=== PATIENT | female | born 1945 | race Caucasian/White ===

== ENCOUNTER 2018-04-01 16:46 | Emergency (ER) | payer MEDICARE ==
[2018-04-01 17:00] VITALS: BP 109/70
--- NOTE | 2018-04-01 17:53 | UC ---
Abdominal Pain Female HPI - HPI Summary HPI Summary: PATIENT SENT BY HER PCP OFFICE FOR EVALUATION. WAS SEEN THERE TODAY COMPLAINING OF 3 DAYS OF OVERALL MALAISE, ABDOMINAL PAIN AND NAUSEA. STATES SHE HAS NOT HAD A BOWEL MOVEMENT IN 3 DAYS WHICH IS NOT NORMAL FOR HER. SHE DOES HOWEVER ENDORSE PASSING GAS TODAY. APPETITE IS DOWN. SHE ADMITS SHE HAS NOT HAD MUCH TO EAT OR DRINK IN THE PAST FEW DAYS. NO FEVER. SHE IS TACHYCARDIC. ACCORDING TO PROGRESS NOTE FROM PCP OFFICE THEY WERE CONCERNED FOR SEPSIS SECONDARY TO UTI VERSUS ABDOMINAL INFECTION/OBSTRUCTION. - History of Current Complaint Chief Complaint: UCAbdominalPain Stated Complaint: STOMACH PAIN Time Seen by Provider: 04/01/18 17:24 Hx Obtained From: Patient Onset/Duration: Gradual Onset, Lasting Days, Still Present Timing: Constant Severity Initially: Moderate Severity Currently: Moderate Pain Intensity: 0 Pain Scale Used: 0-10 Numeric Location: Diffuse Radiates: No Character: Sharp Aggravating Factor(s): Nothing Alleviating Factor(s): Nothing Associated Signs and Symptoms: Positive: Constipation, Decreased Appetite, Nausea. Negative: Fever, Back Pain, Blood in Stool, Vomiting Allergies/Adverse Reactions: Allergies Allergy/AdvReac Type Severity Reaction Status Date / Time No Known Allergies Allergy Verified 04/01/18 16:59 Home Medications: Home Medications Atorvastatin* [Lipitor 10 MG*] 1 tab PO DAILY 04/01/18 [History Confirmed ] Calcium Carbonate/Vitamin D3 [Calcium 600-Vit D3 400 Tablet] 1 tab PO DAILY [History Confirmed 04/01/18] Cholecalciferol TAB* [Vitamin D TAB*] 2,000 units PO DAILY 04/01/18 [History Confirmed 04/01/18] Levothyroxine TAB* [Synthroid 75 MCG TAB*] 1 tab PO DAILY 04/01/18 [History Confirmed 04/01/18] Losartan/Hydrochlorothiazide [Hyzaar 50/12.5 mg] 1 tab PO DAILY 04/01/18 [ History Confirmed 04/01/18] Metoprolol Succinate XL TAB* [Toprol XL TAB*] 1 tab PO DAILY 04/01/18 [History Confirmed 04/01/18] Warfarin TAB(*) [Coumadin TAB(*)] 1 tab PO DAILY 04/01/18 [History Confirmed ] PMH/Surg Hx/FS Hx/Imm Hx Endocrine History: Hypothyroidism Cardiovascular History: Hypertension, Atrial Fibrillation - Surgical History Surgical History: None - Family History Known Family History: Positive: Hypertension - Social History Alcohol Use: None Substance Use Type: None Smoking Status (MU): Never Smoked Tobacco Review of Systems Constitutional: Fatigue Respiratory: Negative Cardiovascular: Negative Gastrointestinal: Abdominal Pain, Nausea, Other - constipated Genitourinary: Negative All Other Systems Reviewed And Are Negative: Yes Physical Exam Triage Information Reviewed: Yes Appearance: Well-Appearing, No Pain Distress, Well-Nourished Vital Signs: Initial Vital Signs Temp 98.8 F 04/01/18 16:55 Pulse 112 04/01/18 16:55 Resp 12 04/01/18 16:55 BP 109/70 04/01/18 16:55 Pulse Ox 98 04/01/18 16:55 Laboratory Tests 04/01/18 18:02 POC Urine Color Brown POC Urine Clarity Slightly cloudy POC Urine pH 5.5 POC Ur Specif [place] 1.025 POC Urine Protein 2+ A POC Ur Glucose (UA) Negative POC Urine Ketones Negative POC Urine Blood 3+ A POC Urine Nitrite Negative POC Urine Bilirubin 1+ A POC Urine Urobilinogen 1.0 POC U Leukocyte Esteras Negative Vital Signs Reviewed: Yes Eyes: Positive: Conjunctiva Clear ENT: Positive: Hearing grossly normal, Other - MUCUS MEMBRANES DRY Neck: Positive: Supple Respiratory Exam: Normal Cardiovascular: Positive: Tachycardia - IRREGULAR Abdomen Description: Positive: Soft, Distended, Other: - MILD RLQ TTP. NO REBOUND OR RIGIDITY. NEG PSOAS. Negative: CVA Tenderness (R), CVA Tenderness (L ), Guarding Bowel Sounds: Positive: Present - NORMAL Musculoskeletal: Positive: No Edema Neurological: Positive: Alert Psychological: Positive: Age Appropriate Behavior Skin: Negative: rashes Diagnostics - EKG Cardiac Rate: NL - 90BPM Cardiac Rhythm: AFib: Old Ectopy: None ST Segment: Normal Abd Pain Female Course/Dx - Course Course Of Treatment: TO [facility] BY AMBULANCE. PT WITH SEVERAL DAYS OF ABDOMINAL PAIN. ON EXAM SHE HAS DISTINCT BOWEL SOUNDS AND REPORTS SHE IS PASSING GAS BUT NO BOWEL MOVEMENT IN 3 DAYS. HAS NAUSEA AND IS NOT EATING OR DRINKING MUCH. MUCUS MEMBRANES DRY. UA SHOWS 3+ BLOOD. PT TACHYCARDIC WITH AFIB. BP LOW/NORMAL. - Differential Dx/Diagnosis Provider Diagnoses: 1. ABDOMINAL PAIN. 2. DEHYDRATION. 3. AFIB WITH RVR - Physician Notification/Consults Discussed Care of Patient With: Lucille Silverio - TO [facility] BY AMBULANCE Time Discussed With Above Provider: 18:30 Instructed by Provider To: MD Will See In ED Discharge - Sign-Out/Discharge Documenting (check all that apply): Patient Departure All imaging exams completed and their final reports reviewed: No Studies - Discharge Plan Condition: Stable Disposition: TRANS HIGHER LVL OF CARE FAC Referrals: Lynda Betts MD [Primary Care Provider] - - Billing Disposition and Condition Condition: STABLE Disposition: Trans Higher Lvl of Care Fac
[2018-04-01] MEDS ORDERED: NS 0.9% 1000 ML* 1,000 ML IV SCH (18:30)
== END 2018-04-01 18:50 | disposition short-term general hospital (02) ==
LOC: UCEAST 16:46
DX: R10.9 Unspecified abdominal pain (principal); E86.0 Dehydration; I48.91 Unspecified atrial fibrillation; I10 Essential (primary) hypertension; Z79.01 Long term (current) use of anticoagulants; E03.9 Hypothyroidism, unspecified; Z79.899 Other long term (current) drug therapy; R53.81 Other malaise; R11.0 Nausea
CPT/HCPCS: 81003; 93005; 96360; 99213; G0463

== ENCOUNTER 2018-04-01 19:06 | Inpatient (IN) | payer MEDICARE ==
[2018-04-01] MEDS ORDERED: NS 0.9% 1000 ML* 1,000 ML IV ONE ×2 (19:26→20:51)
--- NOTE | 2018-04-01 19:42 | ED ---
Abdominal Pain/Female - HPI Summary HPI Summary: A 72 y/o female GEORGE presents to ED c/o RLQ abdominal pain. Currently, the patient is still experiencing abdominal pain reaching 5/10 in severity. In the ED room, the patient has a pulse of 86 BPM, O2 saturation of 93% and blood pressure of 129/75. As per triage, "Pt sent from with co's of constipation. Pt also co some diffuse abd cramping. Denies fever or nv". According to the patient, she has been experiencing RLQ abdominal pain since Friday (03/29/2018, 3 days ago). She noted that she also has vomiting, hematuria and constipation, but denies any rash or diarrhea. No PMHx of appendectomy and kidney stones. SHx of no smoking, a couple beers occasionally. Current medications include Warfarin for a irregular heart beat. - History of Current Complaint Chief Complaint: EDAbdPain Stated Complaint: ABD PAIN Time Seen by Provider: 04/01/18 19:15 Hx Obtained From: Patient Onset/Duration: Sudden Onset, Lasting Days, Still Present Timing: Constant Severity Initially: Moderate Severity Currently: Moderate Pain Intensity: 5 Pain Scale Used: 0-10 Numeric Location: Discrete At: RLQ Radiates: No Aggravating Factor(s): Nothing Alleviating Factor(s): Nothing Associated Signs and Symptoms: Positive: Urinary Symptoms - Hematuria, Vomiting. 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 Infectious Disease History: No Infectious Disease History: Denies: Traveled Outside the [place] in Last 30 Days - Family History Known Family History: Positive: Hypertension - Social History Alcohol Use: None Substance Use Type: Reports: None Smoking Status (MU): Never Smoked Tobacco Review of Systems Negative: Fever Positive: Abdominal Pain, Vomiting, Other - POSITIVE: Constipation. Negative: Diarrhea Positive: hematuria Negative: Rash All Other Systems Reviewed And Are Negative: Yes Physical Exam - Summary Physical Exam Summary: Appearance: Well appearing, no pain distress Skin: warm, dry, reflects adequate perfusion Head/face: normal Eyes: EOMI, TRU ENT: normal Neck: supple, non-tender Respiratory: CTA, breath sounds present Cardiovascular: RRR, pulses symmetrical Abdomen: soft, RLQ tenderness Bowel: present Musculoskeletal: normal, strength/ROM intact Neuro: normal, sensory motor intact, A&Ox3 Triage Information Reviewed: Yes Vital Signs On Initial Exam: Initial Vitals Temp Pulse Resp BP Pulse Ox 97.7 F 91 15 126/78 95 04/01/18 19:36 04/01/18 19:36 04/01/18 19:36 04/01/18 19:36 04/01/18 19:36 Vital Signs Reviewed: Yes Diagnostics - Vital Signs Vital Signs Temp Pulse Resp BP Pulse Ox 04/01/18 19:36 97.7 F 91 15 126/78 95 - Laboratory Result Diagrams: 04/01/18 20:03 04/01/18 20:03 Lab Statement: Any lab studies that have been ordered have been reviewed, and results considered in the medical decision making process. - EKG 2144 Cardiac Rate: NL - 81 BPM EKG Rhythm: Atrial Fibrillation Abdominal Pain Fem Course/Dx - Course Course Of Treatment: A 72 y/o female GEORGE presents to ED c/o RLQ abdominal pain. Currently, the patient is still experiencing abdominal pain reaching 5/10 in severity. In the ED room, the patient has a pulse of 86 BPM, O2 saturation of 93% and blood pressure of 129/75. An EKG revealed a NSR of 81 BPM and atrial fibrillation. In the ED course, the patient recieved Visipaque, Vitamin K and IV fluids. Patient is signed out to Dr. Carlos Ayala via Dr. Shashi Kolb,, awaiting CT A/P, medical clearance and disposition during shift change at 2200 on March. Patient will be signed out with a diagnosis of abdominal pain and hematuria. - Diagnoses Differential Diagnosis: Positive: Diverticulitis, Renal Colic, Urinary Tract Infection Provider Diagnoses: Abdominal pain, Hematuria, Coagulopathy - Critical Care Time Critical Care Time: 30-74 min Discharge - Sign-Out/Discharge Documenting (check all that apply): Sign-Out Patient Signing out patient TO: Carlos Ayala Receiving patient FROM: Shashi Kolb - Discharge Plan Condition: Stable Referrals: Lynda Betts MD [Primary Care Provider] - - Billing Disposition and Condition Condition: STABLE - Attestation Statements Document Initiated by Scribe: Yes Documenting Scribe: Ramiro Elaine Provider For Whom Scribe is Documenting (Include Credential): Shashi Kolb Scribe Attestation: Ramiro Nelson, scribed for Shashi Kolb on 04/01/18 at 2203. Scribe Documentation Reviewed: Yes Provider Attestation: The documentation as recorded by the scribe, Ramiro Elaine accurately reflects the service I personally performed and the decisions made by , Shashi Kolb
[2018-04-01 20:23] LABS: ABS Basophils 0 10^3/ul (0-0.2); ABS Eosinophils 0 10^3/ul (0-0.6); ABS Lymphocytes 1.2 10^3/ul (1.0-4.8); ABS Monocytes 1.3 10^3/ul (0-0.8); ABS Nucleated RBC 0 10^3/ul; Eosinophil % 0.1 % (0-6); Hematocrit 40 % (35-47); Hemoglobin 13.3 g/dl (12.0-16.0); Lymphocyte % 9.7 % (25-47); Mean Corpuscular HGB Conc 33 g/dl (31-36); Mean Corpuscular Hemoglobin 29 pg (27-31); Mean Corpuscular Volume 85 fL (80-97); Mean Platelet Volume 8.2 um3 (7.4-10.4); Nucleated Red Blood Cells % 0; Platelet Count 333 10^3/ul (150-450); Red Blood Count 4.65 10^6/ul (4.00-5.40); Red Cell Distribution Width 13 % (10.5-15); White Blood Count 12.6 10^3/ul (3.5-10.8)
[2018-04-01 20:36] LABS: Urine Appearance Cloudy; Urine Blood 3+ (Negative); Urine Color Amber; Urine Ketones Negative (Negative); Urine Protein 2+(100 mg/dL) (Negative); Urine Red Blood Cell 3+(>10/hpf) (Absent); Urine Urobilinogen Negative (Negative); Urine White Blood Cell 3+(>20/hpf) (Absent)
[2018-04-01 20:48] LABS: EGFR Non-African American 58.5 (>60)
[2018-04-01 21:04] LABS: INR 23.23 (0.77-1.02)
[2018-04-01] MEDS ORDERED: Phytonadione Oral Solution* 5 MG/25 ML UDC PO ONE (21:13)
[2018-04-01] MEDS ORDERED: Iodixanol* (CONTRAST) 320 MG/ML 100 ML SDV IV ONE (21:39)
[2018-04-01] MEDS ORDERED: Phytonadione IV (Adult)* 10 MG in NS 0.9% 50 ML* 50 ML IV ONE (22:27)
--- NOTE | 2018-04-01 23:22 | RAD ---
EXAM: CT Abdomen and Pelvis With Intravenous Contrast CLINICAL HISTORY: 72 years old, female; Pain; Abdominal pain; Generalized; Additional info: Diverticulitis TECHNIQUE: Axial computed tomography images of the abdomen and pelvis with intravenous contrast. All CT scans at this facility use at least one of these dose optimization techniques: automated exposure control; mA and/or kV adjustment per patient size (includes targeted exams where dose is matched to clinical indication); or iterative reconstruction. Coronal and sagittal reformatted images were created and reviewed. CONTRAST: 100 mL of VISI administered intravenously. COMPARISON: No relevant prior studies available. FINDINGS: Lung bases: Linear opacities located in the lung bases which may represent areas of atelectasis and/or scarring. Small hiatal hernia. Liver appears atrophic. No focal hepatic lesion. ABDOMEN: Liver: Unremarkable. No mass. Gallbladder and bile ducts: Gallbladder is partially collapsed. Mild thickening of the gallbladder wall. No calcified gallstones. Small amount of fluid in the gallbladder fossa. No ductal dilation. Pancreas: Pancreas is normal in appearance. No dilatation of the pancreatic duct. Spleen: The spleen is of normal size and appearance. Adrenals: The adrenal glands are normal in appearance. Kidneys and ureters: The kidneys are of normal size and appearance. No hydronephrosis or nephrolithiasis. Extrarenal pelvis on the right side. No hydroureter. Stomach and bowel: Mild dilatation of the proximal small bowel. A transition zone located in the lower abdomen best seen on axial image series 2 image 68 as well as in coronal image series 601 image [id number]. The bowel distal to this transition zone shows abnormal wall thickening with mesenteric inflammation. No bowel wall pneumatosis. Contrast is seen in the mucosa. This appears to be a short segment measuring approximately 12 cm in length. The small bowel distal to this segment has a normal caliber . The appearance of the terminal ileum is normal. Occasional colonic diverticula. No evidence of acute diverticulitis. PELVIS: Appendix: The appearance of the appendix is normal. Bladder: The bladder is filled with urine. No bladder wall thickening. Note calcified bladder stone. Reproductive: Calcification within the uterus most likely representing a leiomyoma. No adnexal masses. ABDOMEN and PELVIS: Intraperitoneal space: Small amount of abdominal ascites. No free air. Bones/joints: No acute fracture. No dislocation. Soft tissues: Unremarkable. Vasculature: Atheromatous changes along the abdominal aorta and iliac arteries. No aneurysmal dilatation. Lymph nodes: Unremarkable. No enlarged lymph nodes. IMPRESSION: Abnormal segment of small bowel which shows abnormal bowel wall thickening. Contrast is seen within the mucosa. Associated mesenteric inflammation. This causes a partial small bowel obstruction. Bowel contrast is seen distal to this segment in which the distal small bowel is normal in appearance. No evidence of a perforation. No associated abscess or mass. Moderate amount of free fluid in the abdomen. This may represent a focal enteritis. This may be secondary to an infectious or inflammatory process. There is contrast located in the mesenteric arcade as well as in the mucosa of the involved small bowel. I do not see evidence of thrombus within the superior mesenteric artery. Contrast is seen in the superior mesenteric vein. This I believe an ischemic process is less likely unless the patient had an embolic phenomenon with interval lysis of the clot.
[2018-04-02 00:10] LABS: Hematocrit 32 % (35-47); Hemoglobin 11.1 g/dl (12.0-16.0)
--- NOTE | 2018-04-02 00:29 | ED ---
Progress - Progress Note Progress Note: Patient was received as a sign out from Dr. Kolb to Dr. Ayala at [address] abd/pel: Abnormal segment of small bowel which shows abnormal bowel wall thickening. Contrast is seen within the mucosa. Associated mesenteric inflammation. This causes a partial small bowel obstruction. Bowel contrast is seen distal to this segment in which the distal small bowel is normal in appearance. No evidence of a perforation. No associated abscess or mass. Moderate amount of free fluid in the abdomen. This may represent a focal enteritis. This may be secondary to an infectious or inflammatory process. There is contrast located in the mesenteric arcade as well as in the mucosa of the involved small bowel. I do not see evidence of thrombus within the superior mesenteric artery. Contrast is seen in the superior mesenteric vein. This I believe an ischemic process is less likely unless the patient had an embolic phenomenon with interval lysis of the clot. re-eval at 22:55: discussed high INR of patient consult with Dr. Candelaria at 2338, she recommends talking to surgery. As there is no coverage for GI, patient will have to be transferred discussed transfer to higher care facility with patient at 2347. Patient is adamant that she does not want to be transferred. 0120: discussed care of patient with Dr. Candelaria in person. Dr. Candelaria does not wan to admit patient, states that Dr. Davila needs to see patient for decision and that she would need surgery opinion for admission of patient 0124: Dr. Davila was called, and is tied up in the OR. He will see the patient when able. 0126: options of patient discussed, she is adamant that she does not want to be transferred. Patient has evidence of GI, bleeding without any blessing blood per rectum. Her INR was 23 on arrival and was given 2 units of FFP, IV vitamin K by me. She had vomited the oral vitamin K given by the physician previous to me. There is a segment of proximal small bowel that appears inflamed. It is possible that this could be a bleeding segment. Surgeon suggest treating enteritis with IV antibiotics. On repeat blood count initially the hemoglobin had dropped 2 g. On the subsequent hemoglobin had raised to 11.8. Her INR felt to 2.1. She is admitted for further observation to the ICU. Re-Evaluation - Re-Evaluation First Eval Re-Evaluation Time: 22:55 Comment: discussed high INR of patient Second Eval Re-Evaluation Time: 23:47 Comment: Patient is adamant that she does not want to be transferred and would leave hospital if that is her only option Third Eval Re-Evaluation Time: 01:26 Comment: Despite discussion of patient's options, she is adamant that she does not want to be transferred Course/Dx - Course Course Of Treatment: A 72 y/o female GEORGE presents to ED c/o RLQ abdominal pain. Currently, the patient is still experiencing abdominal pain reaching 5/10 in severity. In the ED room, the patient has a pulse of 86 BPM, O2 saturation of 93% and blood pressure of 129/75. An EKG revealed a NSR of 81 BPM and atrial fibrillation. In the ED course, the patient recieved Visipaque, Vitamin K and IV fluids. Patient is signed out to Dr. Carlos Ayala via Dr. Shashi Kolb,, awaiting CT A/P, medical clearance and disposition during shift change at 2200 on March. Patient will be signed out with a diagnosis of abdominal pain and hematuria. - Diagnoses Provider Diagnoses: Hematuria, Acute ischemic enteritis, Supratherapeutic INR, Right sided abdominal pain, Adverse effect of anticoagulant - Provider Notifications Discussed Care Of Patient With: Jolie Candelaria Time Discussed With Above Provider: 23:38 Instructed by Provider To: Other - Dr. Candelaria was consulted on patient's case at 2338, states that Dr. Ayala should talk to surgery. As there is no GI coverage , patient will likely have to be transferred. At 0120, discussed care of patient with Dr. Candelaria in person. Dr. Candelaria does not wan to admit patient, states that Dr. Davila needs to see patient for decision and that she would need surgery opinion for admission of patient. 0124, Dr. Davila does not want to come to see patient. - Critical Care Time Critical Care Time: 75-104 min - Critical care time is exclusive of separately billable procedures. Critical care time includes complex medical decision making, transfusion of blood products, multiple re-evaluations, multiple discussions with patient's and consultants. Discharge - Sign-Out/Discharge Documenting (check all that apply): Patient Departure - Discharge Plan Condition: Guarded Disposition: ADMITTED TO [facility] - Billing Disposition and Condition Condition: GUARDED Disposition: Admitted to [facility] - Attestation Statements Document Initiated by Yenny: Yes Documenting Scribe: Enoch Fraire Provider For Whom Yenny is Documenting (Include Credential): Carlos Ayala MD Scribe Attestation: Enoch Nelson, scribed for Carlos Ayala MD on 04/02/18 at 0711. Scribe Documentation Reviewed: Yes Provider Attestation: The documentation as recorded by the Enoch medellin accurately reflects the service I personally performed and the decisions made by me, Carlso Ayala MD
[2018-04-02] MEDS ORDERED: Piperacillin/Tazobac ADVAN(*) 3.375 GM in NS 0.9% 100 ML* 100 ML IVPB ONE (01:26)
--- NOTE | 2018-04-02 02:31 | CONS ---
CC: Lynda Tian MD * CONSULTATION REPORT: DATE OF CONSULT: 04/02/18 TIME OF EVALUATION: 0000. PRIMARY CARE PHYSICIAN: Lynda Tian MD REQUESTING PHYSICIAN FOR CONSULTATION: Carlos Ayala MD REASON FOR CONSULTATION: Evaluation for admission. CHIEF COMPLAINT: Abdominal pain, nausea, and vomiting. HISTORY OF PRESENT ILLNESS: This is a 72-year-old female with the past medical history of atrial fibrillation on anticoagulation, who went to her PCP this morning to have her INR checked and she was also complaining of 3 days of nausea , vomiting, and abdominal pain. Her primary care doctor sent her to urgent care , urgent care promptly sent her to the emergency room. She states she has had the soreness mostly in her right lower quadrant periumbilical region and has had nausea and vomiting for the past 3 days as well. She states she is often constipated. Her last bowel movement she believed was either on the or the . She denies having any flatus. No urinary symptoms. She has noticed some hematuria. She has had decreased appetite for the past 3 days. No fevers. She states she has not had any changes in her medications. She has been taking her Coumadin 2.5 tablets daily. No dietary changes. No recent antibiotic use. She denies any melena or bright red blood per rectum. No chest pain or shortness of breath. Otherwise, review of systems is negative. In the emergency room, the patient had labs and imaging. She was found to have an INR of 23 and a partial small bowel obstruction on CAT scan and she was referred to the hospitalist service for further evaluation. PAST MEDICAL HISTORY: 1. Hypertension. 2. Atrial fibrillation, on anticoagulation. 3. Hypothyroidism. 4. Hyperlipidemia. PAST SURGICAL HISTORY: History of skin cancer on her forehead status post excision. No report of abdominal surgeries. MEDICATIONS: 1. Lipitor 10 mg p.o. daily. 2. Synthroid 50 mcg daily. 3. Losartan/hydrochlorothiazide 50/12.5 mg daily. 4. Metoprolol XL 25 mg daily. 5. Warfarin 3 mg p.o. daily. ALLERGIES: No known drug allergies. FAMILY HISTORY: Mother of unknown case. Father from an [place] in the 70s. SOCIAL HISTORY: The patient lives alone. She is . She has 3 children. Her daughter, Haydee is her healthcare proxy. She is a remote smoker. She drinks about 6 beers per week. CODE STATUS: Full code. REVIEW OF SYSTEMS: A 14-point review of systems as mentioned in the HPI, otherwise negative. PHYSICAL EXAM: Vitals: Temp 97.7, pulse rate 90, respiratory rate 27, oxygen saturation 95% on room air, blood pressure 137/81. General: Some mild distress from discomfort. HEENT: Head normocephalic. Pupils are equal, reactive, and light. Oropharynx: Mucous membranes are dry. Neck: Supple. No lymphadenopathy. Cardiac: Irregularly irregular rate and rhythm. Soft systolic murmur heard throughout. Respiratory: Diminished breath sounds. No wheezes, rhonchi, or rales. Abdomen: Unable to appreciate any bowel sounds. Mild distention. Soft. Tenderness with guarding in the right lower mid quadrant. Extremities: No clubbing, cyanosis, or edema. +1 DPs. Neurologic: Alert and oriented x3. No gross focal neurologic deficits. LABORATORY DATA: White count 12.6, hemoglobin 15.3, hematocrit 40, platelets 333,000. INR is 23, PTT is 122.9. Sodium 130, potassium 3.7, chloride 95, bicarb 27, BUN 23, creatinine 0.94, glucose 117, lactic acid of 2.1, total bili 1.5. Troponin 0.04. Urine shows +3 blood. RADIOGRAPHIC DATA: Abdominal and pelvis CT shows abnormal segment of small bowel, which shows abnormal bowel wall thickening. Contrast seen within the mucosa, associated mesenteric inflammation. This caused a partial small bowel obstruction. Bowel contrast is seen distal to the segment, in which the distal small bowel has normal appearance. No evidence of perforation. No suspicion of abscess or mass. Moderate amount of free fluid in the abdomen. This may represent a focal enteritis. This may be secondary to an infectious or inflammatory process. There is contrast located in the mesenteric arcade as well as the mucosa of the involved small bowel. I do not see evidence of thrombus within the superior mesenteric artery. Contrast is seen in the superior mesenteric vein. Thus, I believe an ischemic process is less likely unless the patient had an embolic phenomenon with interval lysis of the clot. EKG shows atrial fibrillation with a rate of 80. ASSESSMENT: This is a 72-year-old female with past medical history of atrial fibrillation on anticoagulation who presented from urgent care with nausea, vomiting, and abdominal pain, found to have a small bowel obstruction as well as an INR of 23. I repeated her H and H for a concern of occult bleed and her H and H went down to . Her Hemoccult also came back positive. My concern is there is no GI coverage this evening or tomorrow and that she may develop a blessing GI bleed with her INR of 23. She is on her second bag of FFP and has gotten vitamin K; however, due to no availability of GI backup, I recommended transfer to a facility that has GI services 24/02. I relayed my recommendation to Dr. Ayala who is going to transfer her. TIME SPENT: Greater than 60 minutes was spent doing the consultation, more than half time spent in direct patient contact. [id number]/[facility] #: [id number] ADDENDUM As mentioned in progress note - this is now H&P as INR has nearly normalized and H/H has stablized. Patient aware of risks of no GI coverage. Will admit and continue supportive care, including surgery consultation. JENN
[2018-04-02 03:36] LABS: Hematocrit 34 % (35-47); Hemoglobin 11.8 g/dl (12.0-16.0)
[2018-04-02 03:43] LABS: INR 2.11 (0.77-1.02)
[2018-04-02] MEDS ORDERED: Al Hydrox/Mg Hydrox/Simet LIQ* 30 ML UDC PO PRN (03:52)
[2018-04-02] MEDS ORDERED: Ondansetron INJ* 2 MG/ML VIAL IV PRN (03:52)
[2018-04-02] MEDS ORDERED: Metoprolol Tartrate IV* 1 MG/ML 5 ML VIAL IV PRN (03:55)
--- NOTE | 2018-04-02 04:00 | PN ---
Progress Note - Progress Note Date of Service: 04/02/18 Note: Patient has capacity. Refused to leave the ER and refused to be transferred. Discussed the risks of no GI coverage and concern for a catastrophic event for a GI bleed, with an INR of 23, a rapid drop in H/H and a positive hemoccult. Attempted to call the daughter but there was no answer. Called her PCP extrusion bender , an [employer] Batsheva Buck, called the patient to encourage her to be transferred to a hospital that had GI coverage. Patient continued to decline, stating it would be too far away for her family to visit. Repeat H/H showed stable from prior H/H and repeat INR was 2. Patient had received two bags of FFP and Vitamin K. Question if there was a lab error initially with an INR of 23. Dr. Davila evaluated the patient and agreed to be available as a program evaluation consultant. Plan: admit to ICU, PPI drip, hold further blood products, continue zoysn, IVFs. NPO for now. Lopressor IV prn. IF she remains NPO for several days, will need to provide synthroid IV. Follow up with surgery and repeat labs in the AM. Again patient understands the risk for GI bleed and possible with no GI coverage at [facility] and is willing to be admitted regardless. Patient has capacity.
[2018-04-02] MEDS ORDERED: Pantoprazole IV* 40 MG ONE (04:03)
[2018-04-02] MEDS ORDERED: Zosyn per Pharmacy* NOTE FOLLOW UP PRN (04:22)
[2018-04-02] MEDS: Pantoprazole IV* 80 MG in NS 0.9% 250 ML* 250 ML IVPB SCH ×2 (04:50→16:57)
--- NOTE | 2018-04-02 05:24 | CONS ---
CC: Dr. Lynda Betts; [facility] * SURGICAL CONSULTATION REPORT: DATE OF CONSULT: 04/02/18 LOCATION: Emergency room. HISTORY OF PRESENT ILLNESS: I was contacted by the emergency room to evaluate Ms. Sue, a 72-year-old female, who presented to the emergency room from [facility] with complaints of elevated INR and crampy abdominal pain. The patient describes presenting to her primary care doctor today for a routine INR check. When this was elevated, the patient was sent for [facility] for evaluation. The patient was evaluated by her primary care doctor during the time of the elevated INR and was noted to have abdominal pain. The patient describes having an onset of pain on Friday. This was the patient's complaint while here in the emergency room and the patient was sent for CT scan of the abdomen and pelvis. These images were reviewed as well as report and were consistent with a possible partial small bowel obstruction and edematous portion of small bowel and Surgery was consulted. The patient had been in her routine good health up until about Friday when she describes having abdominal pain accompanied with nausea and vomiting. She vomited 2 episodes and did stop. She had no additional vomiting, but describes having pain persistently in the right lower quadrant describing it as tense. She had decreased appetite during all this time and had her last meal on Friday night. The patient has had constipation, but this is not unusual. She denies obstipation. Workup in the ER also showed an INR of 23.2 and elevated PTT. This promptly normalized to 2.11 and may have been more lab error; this is unclear. The patient did receive vitamin K as well as FFP, having 2 FFP transfused. PAST MEDICAL HISTORY: Atrial fibrillation, hypertension, hypothyroidism, and hypercholesterolemia. PAST SURGICAL HISTORY: Skin cancer removed from her forehead. No abdominal surgeries. MEDICATIONS: Medication list reviewed. ALLERGIES: No known drug allergies. SOCIAL HISTORY: She has 3 children, who do check up on her. She quit smoking many years ago. She drinks almost daily. REVIEW OF SYSTEMS: Nausea and vomiting as described. Abdominal pain as described. Decreased appetite. No significant weight loss or weight gain. No dysuria, but hematuria. PHYSICAL EXAM: The patient's temperature 97.7, heart rate 80s to 100s, blood pressure normal with most recent 142/78, respirations 22. Alert and oriented x3. Neck: No lymphadenopathy. Abdomen is soft, nondistended, tender at the right lower quadrant with positive guarding, but no rebound. Hypoactive bowel sounds. Rectal exam not performed. Extremities: Within normal limits. DIAGNOSTIC STUDIES/LAB DATA: Labs reviewed show white count of 12.6 with no left shift, H and H 13/40, which did drop to 11/34 with possible hydration. Chemistry panel reviewed, shows a mildly elevated lactate of 2.1, reference range is less than 2. Normal troponin. Elevated bilirubin of 1.5. Urinalysis reviewed as well. CAT scan again reviewed, which showed segment of small bowel approximately 12 cm in length that shows thickening. There is contrast distal to the thickened bowel and I do not believe the patient is suffering with obstruction. This may represent enteritis. IMPRESSION AND PLAN: Abdominal complaints, elevated INR that seems to have normalized on followup labs where INR shows that it is 2.1. She did have a mild drop in her hemoglobin. My concern is that the patient may be suffering with a short-segment small bowel with potential ischemic changes, but more likely an enteritis. My recommendation is IV hydration. N.p.o. status for now. Bowel rest. Serial abdominal exams and we will follow up in the morning. Case was discussed with hospitalist service and we will follow along closely. [id number]/[facility] #: [id number] JENN
[2018-04-02 06:19] LABS: ABS Basophils 0 10^3/ul (0-0.2); ABS Eosinophils 0 10^3/ul (0-0.6); ABS Lymphocytes 0.8 10^3/ul (1.0-4.8); ABS Monocytes 0.8 10^3/ul (0-0.8); ABS Neutrophils 6.7 10^3/ul (1.5-7.7); ABS Nucleated RBC 0 10^3/ul; Eosinophil % 0.5 % (0-6); Hematocrit 34 % (35-47); Hemoglobin 11.7 g/dl (12.0-16.0); Lymphocyte % 9.3 % (25-47); Mean Corpuscular HGB Conc 35 g/dl (31-36); Mean Corpuscular Hemoglobin 29 pg (27-31); Mean Corpuscular Volume 84 fL (80-97); Nucleated Red Blood Cells % 0; Platelet Count 260 10^3/ul (150-450); Red Cell Distribution Width 13 % (10.5-15); White Blood Count 8.4 10^3/ul (3.5-10.8)
[2018-04-02] MEDS: Piperacillin/Tazobac ADVAN(*) 3.375 GM in NS 0.9% 100 ML* 100 ML IVPB SCH ×3 (06:30→22:32)
[2018-04-02 06:41] LABS: INR 1.74 (0.77-1.02)
[2018-04-02 06:43] LABS: EGFR Non-African American 77.1 (>60)
--- NOTE | 2018-04-02 08:02 | RAD ---
INDICATION: Constipation COMPARISON: CT abdomen pelvis dated April 01, 2016 TECHNIQUE: 2 views the abdomen were obtained. FINDINGS: Diagnostic utility is limited due to poor penetration of a portable chest x-ray through the patient's large body habitus. In the left upper quadrant there are loops of air-filled small bowel measuring 3.5 cm in diameter. There is no definite free intraperitoneal air. IMPRESSION:DILATED LOOPS OF AIR-FILLED SMALL BOWEL IN THE LEFT UPPER QUADRANT MEASURE 3.5 CM IN DIAMETER WHICH CAN BE SEEN IN THE SETTING OF PARTIAL BOWEL OBSTRUCTION OR ILEUS.
--- NOTE | 2018-04-02 11:34 | PN ---
Progress Note - Progress Note Date of Service: 04/02/18 SOAP: Subjective: Pt seen and examined. She is feeling better. Minimal pain R side no flatus no N/V Objective: Temp Pulse Resp BP Pulse Ox 97.6 F 95 23 124/74 93 04/02/18 08:00 04/02/18 06:00 04/02/18 06:00 04/02/18 06:00 04/02/18 06:00 Intake & Output 04/01/18 04/02/18 04/02/18 22:59 06:59 14:59 Intake Total 1000 1193.4 Output Total 950 Balance 1000 243.4 Weight 182 lb 185 lb 3.013 oz abdo: ND, tender on deep palpation at R; no rebound, no guarding Laboratory Last Values WBC 8.4 10^3/ul (3.5-10.8) 04/02/18 06:12 RBC 4.00 10^6/ul (4.00-5.40) 04/02/18 06:12 Hgb 11.7 g/dl (12.0-16.0) L 04/02/18 06:12 Hct 34 % (35-47) L 04/02/18 06:12 MCV 84 fL (80-97) 04/02/18 06:12 MCH 29 pg (27-31) 04/02/18 06:12 MCHC 35 g/dl (31-36) 04/02/18 06:12 RDW 13 % (10.5-15) 04/02/18 06:12 Plt Count 260 10^3/ul (150-450) 04/02/18 06:12 MPV 8.0 um3 (7.4-10.4) 04/02/18 06:12 Neut % (Auto) 79.8 % (38-83) 04/02/18 06:12 Lymph % (Auto) 9.3 % (25-47) L 04/02/18 06:12 Jack % (Auto) 9.9 % (0-7) H 04/02/18 06:12 Eos % (Auto) 0.5 % (0-6) 04/02/18 06:12 Baso % (Auto) 0.5 % (0-2) 04/02/18 06:12 Absolute Neuts (auto) 6.7 10^3/ul (1.5-7.7) 04/02/18 06:12 Absolute Lymphs (auto) 0.8 10^3/ul (1.0-4.8) L 04/02/18 06:12 Absolute Monos (auto) 0.8 10^3/ul (0-0.8) 04/02/18 06:12 Absolute Eos (auto) 0 10^3/ul (0-0.6) 04/02/18 06:12 Absolute Basos (auto) 0 10^3/ul (0-0.2) 04/02/18 06:12 Absolute Nucleated RBC 0 10^3/ul 04/02/18 06:12 Nucleated RBC % 0 04/02/18 06:12 INR (Anticoag Therapy) 1.74 (0.77-1.02) H 04/02/18 06:12 APTT 122.9 seconds (26.0-36.3) H* 04/01/18 20:03 Sodium 131 mmol/L (135-145) L 04/02/18 06:12 Potassium 3.3 mmol/L (3.5-5.0) L 04/02/18 06:12 Chloride 98 mmol/L (101-111) L 04/02/18 06:12 Carbon Dioxide 25 mmol/L (22-32) 04/02/18 06:12 Anion Gap 8 mmol/L (2-11) 04/02/18 06:12 BUN 18 mg/dL (6-24) 04/02/18 06:12 Creatinine 0.74 mg/dL (0.51-0.95) 04/02/18 06:12 Est GFR ( Amer) 93.3 (>60) 04/02/18 06:12 Est GFR (Non-Af Amer) 77.1 (>60) 04/02/18 06:12 BUN/Creatinine Ratio 24.3 (8-20) H 04/02/18 06:12 Glucose 108 mg/dL (70-100) H 04/02/18 06:12 Lactic Acid 2.1 mmol/L (0.5-2.0) H* 04/01/18 20:03 Calcium 8.1 mg/dL (8.6-10.3) L 04/02/18 06:12 Total Bilirubin 1.50 mg/dL (0.2-1.0) H 04/01/18 20:03 AST 17 U/L (13-39) 04/01/18 20:03 ALT 13 U/L (7-52) 04/01/18 20:03 Alkaline Phosphatase 63 U/L (34-104) 04/01/18 20:03 Troponin I 0.04 ng/mL (<0.04) H* 04/01/18 20:03 Total Protein 6.7 g/dL (6.4-8.9) 04/01/18 20: Albumin 3.8 g/dL (3.2-5.2) 04/01/18 20: Globulin 2.9 g/dL (2-4) 04/01/18 20: Albumin/Globulin Ratio 1.3 (1-3) 04/01/18 20: Lipase 13 U/L (11.0-82.0) 04/01/18 20:03 Urine Color Magdalene 04/01/18 20: Urine Appearance Cloudy 04/01/18 20: Urine pH 5.0 (5-9) 04/01/18 20:03 Ur Specific [place] 1.020 (1.010-1.030) 04/01/18 20:03 Urine Protein 2+(100 mg/dl) (Negative) A 04/01/18 20: Urine Ketones Negative (Negative) 04/01/18 20: Urine Blood 3+ (Negative) A 04/01/18 20: Urine Nitrate Negative (Negative) 04/01/18: Urine Bilirubin Negative (Negative) 04/01/18 20: Urine Urobilinogen Negative (Negative) 04/01/18 20:03 Ur Leukocyte Esterase Trace (Negative) A 04/01/18 20:03 Urine WBC (Auto) 3+(>20/hpf) (Absent) A 04/01/18 20: Urine RBC (Auto) 3+(>10/hpf) (Absent) A 04/01/18 20:03 Ur Squamous Epith Cells Present (Absent) A 04/01/18 20:03 Urine Bacteria Absent (Absent) 04/01/18 20: Urine Yeast Present (Absent) A 04/01/18 20: Urine Glucose Negative (Negative) 08/29/18 20:03 Blood Type A Positive 04/01/18 20:03 Antibody Screen Negative 04/01/18 20:03 Assessment: abdo pain- unclear etiology, although improving. PSBO vs enteritis, dehydration Plan: bowel rest for another 12hrs abx serial exams labs. I/Os
--- NOTE | 2018-04-02 13:03 | PN ---
Subjective Date of Service: 04/02/18 Interval History: Patient is feeling better today, denies abd pain, states that she had a large dark loose BM this AM. Denies fever or chills. Reports that her normal prescription for Coumadin is 2mg tablets and she has been taking 2.5 tablets for years, she reports that she got her prescription on 03/17/18 that it was filled with 2 mg tablets but it was filled with 5 mg tablets. the patient states that she was never notified of the dosage change and has been taking 2.5 tablets of the 5mg pill giving her a total of 12.5 mg of Coumadin a day instead of her normal dose of 5 mg since the Family History: Unchanged from Admission Social History: Unchanged from Admission Past Medical History: Unchanged from Admission Objective Active Medications: Al Hydrox/Mg Hydrox/Simethicone (Maalox Plus*) 30 ml PO Q6H PRN PRN Reason: INDIGESTION Pantoprazole Sodium 80 mg/ (Sodium Chloride) 250 mls @ 25 mls/hr IVPB Q10H [facility] Last Admin: 04/02/18 04:50 Dose: 25 mls/hr Piperacillin Sod/Tazobactam (Sod 3.375 gm/ Sodium Chloride) 100 mls @ 25 mls/ hr IVPB Q8H [facility] Last Admin: 04/02/18 06:30 Dose: 25 mls/hr Metoprolol Tartrate (Lopressor Iv*) 5 mg IV Q6H PRN PRN Reason: BLOOD PRESSURE Ondansetron HCl (Zofran Inj*) 4 mg IV Q4H PRN PRN Reason: NAUSEA/VOMITING Pharmacy Consult (Zosyn Per Pharmacy*) 1 note FOLLOW UP . PRN PRN Reason: PER PROTOCOL Vital Signs - 8 hr 04/02/18 04/02/18 04/02/18 05:00 05:17 05:21 Temperature 97.4 F Pulse Rate 93 91 91 Respiratory 22 18 24 Rate Blood Pressure 130/72 124/73 (mmHg) O2 Sat by Pulse 93 93 92 Oximetry 04/02/18 04/02/18 04/02/18 05:30 05:40 05:45 Temperature 97.9 F Pulse Rate 92 93 94 Respiratory 25 14 23 Rate Blood Pressure 126/71 124/73 111/62 (mmHg) O2 Sat by Pulse 93 92 90 Oximetry 04/02/18 04/02/18 04/02/18 06:00 08:00 11:50 Temperature 97.6 F 98.4 F Pulse Rate 95 Respiratory 23 Rate Blood Pressure 124/74 (mmHg) O2 Sat by Pulse 93 Oximetry Oxygen Devices in Use Now: None Appearance: appears comfortable sittingin the chair, no acute distress Eyes: No Scleral Icterus Ears/Nose/Mouth/Throat: Mucous Membranes Moist Neck: NL Appearance and Movements; NL JVP, Trachea Midline Respiratory: Symmetrical Chest Expansion and Respiratory Effort, Clear to Auscultation Cardiovascular: NL Sounds; No Murmurs; No JVD, No Edema Abdominal: NL Sounds; No Tenderness; No Distention Extremities: No Edema, No Clubbing, Cyanosis Neurological: Alert and Oriented x 3 Nutrition: - - NPO Result Diagrams: 04/02/18 06:12 04/02/18 06:12 Microbiology and Other Data: Microbiology 04/01/18 23:50 Stool Occult Blood (CHARLES) - Final Stool Assess/Plan/Problems-Billing Assessment: Ms. Sue is a 72 y.o female with a pmhx of a-fib, htn, hypothyroid and hld who presented to the ER with elevated INR of 23.1 and n/v/abd pain. Patient refused to be transferred to another facility that had GI coverage available . Was given FFP and vitamin K and INR responded. slight drop in H/H from initial blood work. - Patient Problems (1) Supratherapeutic INR Current Visit: Yes Status: Acute Code(s): R79.1 - ABNORMAL COAGULATION PROFILE SNOMED Code(s): 326001004 Comment: Inital INR was 23.1 - given FFP and Vit K - repeat level today was 1.73 -will continue to monitor INR and signs of bleeding - H/H stable - will hold coumadin for now - patient reports was taking wrong dose of coumadin since 03/17 thought she was taking 5mg and she was taking 12.5 mg daily (2) Abdominal pain Current Visit: Yes Status: Acute Code(s): R10.9 - UNSPECIFIED ABDOMINAL PAIN SNOMED Code(s): 70032403 Comment: suspect this is related to possible partial SBO -Patient with large loose BM today - abd pain is resolved - no n/v (3) Heme + stool Current Visit: Yes Status: Acute Comment: Heme positive stools - h/h stable will continue to monitor - continue protonix IV - suspect this is related to have elevated INR - which is now corrected - patient is aware of NO GI coverage and the risks associated, if she should start bleeding. (4) HTN (hypertension) Current Visit: Yes Status: Acute Code(s): I10 - ESSENTIAL (PRIMARY) HYPERTENSION SNOMED Code(s): 93478432 Comment: metoprolol 5 mg iv Q 6 hours SBP 124 this AM will restart po metprolol when able (5) Afib Current Visit: Yes Status: Acute Code(s): I48.91 - UNSPECIFIED ATRIAL FIBRILLATION SNOMED Code(s): 08336289 Comment: - will hold coumdin today - patient did have large dark BM this AM and heme positive stool occult - INR 1.73 (6) Hypothyroid Current Visit: Yes Status: Acute Code(s): E03.9 - HYPOTHYROIDISM, UNSPECIFIED SNOMED Code(s): 87413922 Comment: - will resume levothyroxine when able (7) HLD (hyperlipidemia) Current Visit: Yes Status: Acute Code(s): E78.5 - HYPERLIPIDEMIA, UNSPECIFIED SNOMED Code(s): 23412160 Comment: - will resume lipitor when able (8) DVT prophylaxis Current Visit: Yes Status: Acute Code(s): SKN8434 - SNOMED Code(s): 578390026 Comment: [facility] [employer] [facility] d/t elevated INR and positive occult stool (9) Full code status Current Visit: Yes Status: Acute Code(s): Z78.9 - OTHER SPECIFIED HEALTH STATUS SNOMED Code(s): 442461044 Status and Disposition: will transfer to medical floor
[2018-04-02 17:53] LABS: Hematocrit 33 % (35-47); Hemoglobin 11.5 g/dl (12.0-16.0)
[2018-04-02] MEDS ORDERED: NS 0.9% 1000 ML* 1,000 ML IV SCH (23:00)
[2018-04-03] MEDS: Pantoprazole IV* 80 MG in NS 0.9% 250 ML* 250 ML IVPB SCH ×2 (02:59→10:00)
[2018-04-03] MEDS: Piperacillin/Tazobac ADVAN(*) 3.375 GM in NS 0.9% 100 ML* 100 ML IVPB SCH (05:22)
[2018-04-03 06:25] LABS: ABS Basophils 0.1 10^3/ul (0-0.2); ABS Eosinophils 0.4 10^3/ul (0-0.6); ABS Monocytes 0.8 10^3/ul (0-0.8); ABS Neutrophils 3.9 10^3/ul (1.5-7.7); ABS Nucleated RBC 0 10^3/ul; Eosinophil % 6.3 % (0-6); Hematocrit 32 % (35-47); Lymphocyte % 15.9 % (25-47); Mean Corpuscular HGB Conc 35 g/dl (31-36); Mean Corpuscular Hemoglobin 30 pg (27-31); Mean Corpuscular Volume 85 fL (80-97); Nucleated Red Blood Cells % 0; Platelet Count 260 10^3/ul (150-450); Red Blood Count 3.72 10^6/ul (4.00-5.40); Red Cell Distribution Width 13 % (10.5-15); White Blood Count 6.1 10^3/ul (3.5-10.8)
[2018-04-03 06:44] LABS: EGFR Non-African American 59.3 (>60)
[2018-04-03] MEDS ORDERED: KCL 20 MEQ/100 ML IVPREMIX* 20 MEQ/100 ML BAG IV SCH (09:00)
[2018-04-03] MEDS ORDERED: Potassium Chlor TAB* 20 MEQ TAB.ER PO ONE (09:22)
[2018-04-03] MEDS ORDERED: Potassium Chloride LIQUID* 20 MEQ PACKET PO ONE ×2 (09:30→11:00)
[2018-04-03] MEDS ORDERED: TAZOBAC ADVAN IVPB SCH (10:46)
[2018-04-03] MEDS ORDERED: NS 0.9% IVPB SCH (10:46)
[2018-04-03] MEDS ORDERED: PIPERACILLIN IVPB SCH (10:46)
[2018-04-03] MEDS ORDERED: Piperacillin/Tazobac ADVAN(*) 3.375 GM in NS 0.9% 50 ML* 50 ML IVPB SCH ×2 (10:49→14:00)
--- NOTE | 2018-04-03 10:54 | PN ---
Subjective Date of Service: 04/03/18 Interval History: Pt reports her abdominal pain has resolved and she hopes to go home today. She reports "lots of rumbling with gas" in her abdomen but denies pain. She Reports loos BM last night that was dark but is not able to tell me if it was melena like. She denies any further BMs since. Reports she is tolerating her clear liquid diet. No Nausea/vomiting. No fevers or chills. Feels steady on her feet. Family History: Unchanged from Admission Social History: Unchanged from Admission Past Medical History: Unchanged from Admission Objective Active Medications: Al Hydrox/Mg Hydrox/Simethicone (Maalox Plus*) 30 ml PO Q6H PRN PRN Reason: INDIGESTION Pantoprazole Sodium 80 mg/ (Sodium Chloride) 250 mls @ 25 mls/hr IVPB Q10H [facility] Last Admin: 04/03/18 02:59 Dose: 25 mls/hr Piperacillin Sod/Tazobactam (Sod 3.375 gm/ Sodium Chloride) 50 mls @ 12.5 mls/ hr IVPB Q8H [facility] Metoprolol Tartrate (Lopressor Iv*) 5 mg IV Q6H PRN PRN Reason: BLOOD PRESSURE Ondansetron HCl (Zofran Inj*) 4 mg IV Q4H PRN PRN Reason: NAUSEA/VOMITING Pharmacy Consult (Zosyn Per Pharmacy*) 1 note FOLLOW UP . PRN PRN Reason: PER PROTOCOL Potassium Chloride (Klor-Con Liquid*) 20 meq PO ONCE ONE Stop: 04/03/18 11:01 Last Admin: 04/03/18 10:24 Dose: 20 meq Vital Signs - 8 hr 04/03/18 03:00 Temperature 97.5 F Pulse Rate 93 Respiratory 16 Rate Blood Pressure 126/64 (mmHg) O2 Sat by Pulse 95 Oximetry Oxygen Devices in Use Now: None Appearance: 72 yo female A+O x3 in NAD sitting up in bed Eyes: No Scleral Icterus, PERRLA Ears/Nose/Mouth/Throat: NL Teeth, Lips, Gums, Mucous Membranes Moist Neck: NL Appearance and Movements; NL JVP Respiratory: Symmetrical Chest Expansion and Respiratory Effort, Clear to Auscultation Cardiovascular: NL Sounds; No Murmurs; No JVD, RRR Abdominal: NL Sounds; No Tenderness; No Distention, - - obese Extremities: No Edema, No Clubbing, Cyanosis Skin: No Rash or Ulcers, No Nodules or Sclerosis Neurological: Alert and Oriented x 3, NL Muscle Strength and Tone Lines/Tubes/Other Access: Clean, Dry and Intact Peripheral IV Nutrition: Taking PO's Result Diagrams: 04/03/18 06:00 04/03/18 06:00 Microbiology and Other Data: Microbiology 04/01/18 23:50 Stool Occult Blood (CHARLES) - Final Stool Assess/Plan/Problems-Billing Assessment: Ms. Sue is a 72 y.o female with a pmhx of a-fib, htn, hypothyroid and hld who presented to the ER with elevated INR of 23.1 and n/v/abd pain. Patient refused to be transferred to another facility that had GI coverage available . Was given FFP and vitamin K and INR responded. slight drop in H/H from initial blood work. - Patient Problems (1) Abdominal pain Comment: - Appreciate surgery's input - suspect related to possible partial SBO vs enteritis - Abdomen xray 04/02 showing "dilated loops of air filled small bowel in LUQ" suspicious for PSBO or ileus. - Plan to repeat abdominal xray - Pain resolved - pt clinically improving - advanced to clears - tolerating well. - serial abdominal exams - I+Os (2) Heme + stool Comment: - Heme positive stools in the setting of supratherapuetic INR from taking the wrong coumadin dosing - - h/h stable will continue to monitor - continue protonix IV - patient is aware of NO GI coverage and the risks associated, if she should start bleeding. - will await to discuss with surgery to see whats recommended ... pt will need to f/u with GI and coumadin held - she may require endoscopy/colonoscopy prior to starting coumadin. (3) Afib Comment: - Hold coumdin - INR 1.73 04/02 - repeat in am (4) HLD (hyperlipidemia) Comment: - Resume lipitor (5) HTN (hypertension) Comment: stable metoprolol 5 mg iv Q 6 hours prn will restart po metprolol when able (6) Hypothyroid Comment: - resume levothyroxine (7) Supratherapeutic INR Comment: Inital INR was 23.1 - given FFP and Vit K - repeat level 04/02 was 1.73 -will continue to monitor INR and signs of bleeding - H/H stable - will hold coumadin for now - patient reports was taking wrong dose of coumadin since 03/17 thought she was taking 5mg and she was taking 12.5 mg daily (8) Full code status (9) DVT prophylaxis Comment: [facility] held d/t elevated INR and positive occult stool Status and Disposition: inpatient.
--- NOTE | 2018-04-03 14:15 | PN ---
Progress Note - Progress Note Date of Service: 04/03/18 SOAP: Subjective:no abd pain,no n/v;passing flatus and loose stool;albert clears;wants to go home [] Objective:afeb;VSS;Abd:+bs,obese,soft,nontender throughout to deep palpation,no obvious masses,no guarding [] Assessment:resolved abd pain [] Plan:discussed with Radha Renae NP who will reach out for possible GI consult; no surgical intervention required;start full liqs;disch planning and resumption of Coumadin per Hosp;will review AXR []
--- NOTE | 2018-04-03 16:37 | RAD ---
INDICATION: 5 days of abdominal pain COMPARISON: KUB dated April 02, 2018 TECHNIQUE: Supine and upright views of the abdomen were obtained. FINDINGS: Similar to the prior KUB, there are dilated loops of air-filled small bowel now measuring up to 4.6 cm in diameter in the left upper quadrant. These loops of air-filled small bowel are seen essentially throughout the abdomen. There is gas and stool seen overlying the otherwise normal-appearing colon. There is no evidence of free intraperitoneal gas. IMPRESSION: Bowel obstruction versus ileus.
[2018-04-03] MEDS: Omeprazole CAP* 20 MG PO SCH (19:54)
[2018-04-04] MEDS ORDERED: Levothyroxine TAB* 75 MCG TAB PO SCH (06:00)
[2018-04-04 06:46] LABS: ABS Basophils 0.1 10^3/ul (0-0.2); ABS Eosinophils 0.4 10^3/ul (0-0.6); ABS Monocytes 0.8 10^3/ul (0-0.8); ABS Neutrophils 4.1 10^3/ul (1.5-7.7); ABS Nucleated RBC 0 10^3/ul; Eosinophil % 6.3 % (0-6); Hematocrit 33 % (35-47); Hemoglobin 11.2 g/dl (12.0-16.0); Lymphocyte % 15.5 % (25-47); Mean Corpuscular HGB Conc 34 g/dl (31-36); Mean Corpuscular Hemoglobin 29 pg (27-31); Mean Corpuscular Volume 86 fL (80-97); Mean Platelet Volume 7.8 um3 (7.4-10.4); Nucleated Red Blood Cells % 0.1; Platelet Count 319 10^3/ul (150-450); Red Blood Count 3.83 10^6/ul (4.00-5.40); Red Cell Distribution Width 13 % (10.5-15); White Blood Count 6.3 10^3/ul (3.5-10.8)
[2018-04-04 06:54] LABS: INR 1.49 (0.77-1.02)
[2018-04-04] MEDS ORDERED: Potassium Chlor TAB* 20 MEQ TAB.ER PO ONE (08:01)
[2018-04-04] MEDS ORDERED: Potassium Chloride LIQUID* 20 MEQ PACKET PO SCH (09:00)
[2018-04-04] MEDS: Omeprazole CAP* 20 MG PO SCH (09:17)
--- NOTE | 2018-04-04 12:37 | CONS ---
GASTROENTEROLOGY CONSULT: DATE OF CONSULT: 04/04/18 CONSULTING PHYSICIANS: Lynda Tian MD; Jolie Candelaria MD REASON FOR CONSULTATION: Heme-positive stool in a woman on warfarin admitted with an INR initially of 23, and also reported vomiting with a partial small bowel obstruction on CT scan and plain films continuing to show slightly dilated loops of small bowel. HISTORY OF PRESENT ILLNESS: This 72-year-old woman on warfarin for at least 5 years because of atrial fibrillation, had problems begin on 03/29/18, when her stomach felt firm and she just felt poorly. This continued for several days. She felt nauseated, but denied vomiting. Then later when pressed (after reviewing the initial internal medicine consult), she acknowledged she did vomit once. She did not have any fever or bleeding. She had no bowel movements , but states she is usually bound up and did not think this significant. She went to see her primary doctor and her INR was elevated, and she was sent to [facility] and then the emergency room, with an INR of 23 found. Ultimately she was given 3 units FFP and admitted here when she refused to transfer as it was Gastroenterology uncovered night at that time. Here in the hospital, CT of the abdomen had showed some bowel dilation and an abnormal loop of mid to distal ileum. She has had no further vomiting and she has remained afebrile and her hemoglobin has been quite stable in the 11s, and this morning of 11.2. Her INR is now 1.49. She states that a month or two ago, she really did not have any gastrointestinal symptoms other than taking Ex-Lax once twice a month because of constipation, which is longstanding. She had a colonoscopy in 2008 including a few centimeters of terminal ileum and it was completely normal without any diverticula. PAST MEDICAL HISTORY: 1. Hypertension. 2. Atrial fibrillation - no history of syncope. She has never had any thromboembolic events. She had been on warfarin five years, and denies any episodes of bleeding. 3. Hypothyroidism. 4. Dyslipidemia. 5. Chronic constipation - she will take Ex-Lax if she goes with day. PAST SURGICAL HISTORY: Skin cancer on the forehead. She has never had any abdominal surgery. MEDICATIONS: Lipitor Synthroid. Losartan/hydrochlorothiazide. Metoprolol. Warfarin. She is uncertain if her warfarin bottle may have had a higher dose. Her daughter, Haydee, has now sequestered all the bottles for review. ALLERGIES: None to drugs. FAMILY HISTORY: Mother and father . Father of an MS. SOCIAL HISTORY: She is from [place] originally, but grew up in [place]. Of her 3 children, her daughter, Haydee, just lives half a mile away. Her daughter works at [employer]. No healthcare workers in the family. REVIEW OF SYSTEMS: No history of TIA, CVA, syncope, hemoptysis, prior lung disease, liver problems, rectal bleeding, anemia, psoriasis, neurologic problems , neuropathy. EXAM: She is an older woman, moderately overweight, in no distress at this time. Conversation is clear She is unfamiliar with medical terminology and has difficulty making correlations if the questions asked. HEENT exam shows no icterus. She has no adenopathy. Her lungs are clear with somewhat diminished breath sounds. Breasts are without masses. The abdomen is obese with very active bowel sounds, though none are high-pitched. There is no tenderness. She just had a bowel movement, which she said was brown, and rectal deferred. Stool was heme- positive on admission. DIAGNOSTIC STUDIES/LAB DATA: CT reviewed - appears to be some ascites over the liver. There are dilated loops of bowel and as stated in the report in right lower quadrant, coronal images 34 to 38, it is an abnormal area of bowel that is probably a couple of loops up from the ileocecal valve. IMPRESSION: This 72-year-old woman with atrial fibrillation, though fortunately no history of thromboembolic events, was admitted with an INR of 23. It is unclear how that relates to a history of her abdomen feeling hard and 1 episode of vomiting, and then having a mild SBO and an abnormal loop of bowel on CT scan. There could have been some intramural bleeding and or peritoneal leak thugh it is an unusaul location and the amount and quality of pain she reports is mild for that. With conservative treatment, she had done well, and actually this morning ate a full breakfast and states it is going to stay down. On plain films, the small bowel obstruction has not completely resolved. She is feeling well and at the moment it seems reasonable to observe her for another meal or two and consider discharge to close outpatient followup where if she reverts to heme-negative status, warfarin can be resumed under close observation. The patient does not seem to appreciate how bringing her bottles to her visits and having a family member accompanying her could be of value. It seems premature to repeat a CT scan at this time or to plan a colonoscopy as the ileal loop of interest is probably beyond the reach of a colonoscope. Followup over the next month or two is likely to indicate what the priorities are. She will need to be encouraged to involve family. [id number]/[facility] #: [id number] JENN
--- NOTE | 2018-04-04 14:26 | RAD ---
Indication: Small bowel obstruction versus ileus. Comparison: April 03, 2018 Technique: Supine and upright views of the abdomen. Report: Negative for free air beneath the diaphragm. Significant interval improvement in small bowel dilatation. Persistent air-fluid levels at the small bowel and colon. Negative for mass effect. Grossly clear lung bases. IMPRESSION: #. Resolving small bowel obstruction.
[2018-04-04 15:35] VITALS: BP 131/72
--- NOTE | 2018-04-04 21:44 | DS ---
CC: Dr. Tian; Dr. Theodore Davila; Dr. Damien Latham * DISCHARGE SUMMARY: DATE OF ADMISSION: 04/02/18 DATE OF DISCHARGE: 04/04/18 PRIMARY CARE PROVIDER: Dr. Lynda Tian. ATTENDING FOR THIS ADMISSION: Dr. Cristy Stanton. MY ATTENDING FOR TODAY: Dr. Cristy Stanton.* (DICTATED BY OMAR ANN NP) HOSPITAL COURSE: This is a 72-year-old female patient, who presented to the emergency department with a complaint of abdominal pain. The patient states that she had rumbling gas sensation and diffuse abdominal pain. She had some loose stools throughout the course of her hospitalization. However, when she was initially admitted, she was found to have a supratherapeutic INR. She was a positive guaiac on her stool. At that point, the patient was supposed to be discharged out of the emergency department and transferred to another facility as we did not GI coverage over the weekend; however, the patient stated she wished to stay and refused to be transferred. The patient was given FFP x2 units, supportive care. We held her Coumadin, to be seen by both General Surgery and Dr. Latham, who was back on service this morning to evaluate the patient. Imaging of her abdomen showed that she had some dilated loops and air- filled small bowel. At this point, we suspected a partial small bowel obstruction versus an ileus. She has serial abdominal examinations and x-rays. She tolerated a clear liquid diet, was advanced to full and actually tolerated a regular diet today. Post lunch, the patient did have an additional flat plate of the abdomen, which showed her resolving obstruction versus ileus. Although the patient was heme-positive on her stools, her hemoglobin remained stable. She had Protonix IV in the setting of her supratherapeutic INR; however , as per Dr. Latham, no acute intervention was required. She had no melena and no bloody stools and conservative management was elected. In terms of her supratherapeutic INR, I think there was some question of proper dosing of her medication. The patient was supposed to be taking 5 mg, which was usually dosed in 2 mg tablets and which she would take 2-1/2 pills per day; however, I am not sure given that I did not see her prescription bottle, but the family is concerned that she actually received 5 mg tablets on her last refill, so in essence was taking 12.5 mg of Coumadin daily as opposed to 5 mg. I instructed the patient after she was cleared by both Surgery and GI today that she should hold her Coumadin until she brings the bottle back to her pharmacy tomorrow to have her medication verified, have the pills identified and have the dose confirmed with her primary care provider. The patient states her understanding that she will be off of Coumadin until tomorrow. Her INR is currently 1.49 today, which is subtherapeutic; however, given the abdominal pain, the positive guaiac and high INR at admission, I feel safer for her to continue to hold until we can clarify her dose and ensure that the medication she has at home is in fact the dose that she is supposed to be taking. REVIEW OF SYSTEMS: On the day of discharge, the patient denies any fever, fatigue, or chills. No chest pain, no shortness of breath, no palpitations. No further abdominal pain, no nausea, no vomiting, no diarrhea, and no further constitutional complaints. PHYSICAL EXAMINATION: The patient is alert, in no acute distress. Vital signs are currently blood pressure 131/72; heart rate 92, irregular; respiratory rate 18; O2 saturation 98% on room air with a temperature of 98.1. HEENT: The patient is atraumatic, normocephalic. PERRLA with nonicteric sclerae. Oral mucosa is moist. Neck is supple, nontender. No JVD noted and no carotid bruits auscultated. Cardiovascular: S1, S2 present. Rate and rhythm are irregular ranging from high 70s to low 90s. No murmurs, gallops, or rubs noted. Lungs are clear bilaterally to auscultation with no wheezing, rhonchi, or rales. Abdomen is soft, nontender, and nondistended. Positive bowel sounds in all 4 quadrants. is deferred. Musculoskeletal: There is no clubbing, no cyanosis , and no edema. She has +2 distal pulses palpable, brisk cap refill, steady gait, and full range of motion. Neurologic: She is grossly intact with no focalities. Psychiatric: She is cooperative and appropriate. DIAGNOSTIC STUDIES/LAB DATA: WBCs 6.3, RBCs 3.83, hemoglobin 11.2, hematocrit 33, platelets 319. Sodium 137; potassium 3.3, repleted; chloride 104; CO2 25; BUN 9; creatinine 0.92; GFR 60; glucose 116; lactic acid 0.8; calcium 8.3; magnesium 2.0. Troponin was negative at 0.00. Imaging: CAT scan of the abdomen and pelvis dated 04/01/18 shows an abnormal segment of small bowel, which shows abnormal bowel wall thickening. Contrast is seen in the mucosa, associated mesenteric inflammation, which is causing partial small bowel obstruction. Bowel contrast is seen distal to the segment, which is distal to the small bowel and is normal in appearance. No evidence of perforation. No abscess or mass. There is moderate amount of free fluid in the abdomen, which may represent a focal enteritis may be secondary to infectious or inflammatory process. Contrast was seen in the superior mesenteric vein, which is likely more an ischemic process and less likely unless the patient has had embolic phenomenon. Flat plate of the abdomen dated 04/04/18 shows resolving small bowel obstruction. DISPOSITION: The patient will be discharged to home in the care of her daughter. FOLLOWUPS: The patient should see her primary care provider in the next 1 to 3 days, have her INR rechecked on Friday. The patient does not need to follow up with GI at this time. DIET: The patient is tolerating full liquids and soft and should advance as tolerated over the next 24 to 48 hours. MEDICATIONS AT DISCHARGE: Include: 1. Metoprolol succinate 1 tab daily. 2. Hyzaar 50/12.5 one tab daily. 3. Levothyroxine 75 mcg daily. 4. Vitamin D 2000 units daily. 5. Calcium and vitamin D supplement 1 tablet daily. 6. Lipitor 10 mg daily. 7. Warfarin is being held, but her initial dose was 5 mg daily, only to be restarted after her medications have been confirmed with her pharmacy and clarified with her primary care provider. DISCHARGE DIAGNOSES: 1. Abdominal pain secondary to partial small bowel obstruction versus enteritis versus ileus. 2. Supratherapeutic INR secondary to warfarin use, now resolved. 3. Heme-positive stool, likely secondary to the supratherapeutic INR, does not appear to be active bleeding. 4. History of atrial fibrillation, currently in controlled ventricular response. 5. Hypertension, stable on metoprolol. 6. Hypothyroidism, stable on levothyroxine. 7. Hypokalemia, which has been repleted both IV and orally. DISPOSITION: The patient will be discharged to home. All questions were answered. The patient and her daughter stated their understanding of her medications at the time of discharge, followups, and also it was explained to her to return to the emergency department or call her primary care if she had any bleeding, chest pain, or shortness of breath. OMAR ANN NP [id number]/[facility] #: [id number] JENN
== END 2018-04-04 16:10 | disposition home or self-care (01) | DRG 392 ==
LOC: ED 19:06 → ICU 04-02 03:52 → MED 04-02 15:53
PROVIDERS: ADMIT Surgery; ATTEND Hospitalist
PROC: 30233K1 Transfusion of Nonautologous Frozen Plasma into Peripheral Vein, Percutaneous Approach (ICD-10-PCS; principal; 2018-04-01)
DX: K52.9 Noninfective gastroenteritis and colitis, unspecified (principal); K56.7 Ileus, unspecified; I10 Essential (primary) hypertension; I48.91 Unspecified atrial fibrillation; E03.9 Hypothyroidism, unspecified; E78.5 Hyperlipidemia, unspecified; K59.09 Other constipation; E66.3 Overweight; E86.0 Dehydration; E87.5 Hyperkalemia; R79.1 Abnormal coagulation profile; Z85.828 Personal history of other malignant neoplasm of skin; Z82.49 Family history of ischemic heart disease and other diseases of the circulatory system; Z87.891 Personal history of nicotine dependence; Z68.30 Body mass index [BMI] 30.0-30.9, adult
CPT/HCPCS: 36415; 74018; 74019; 74177; 80048; 80053; 81003; 81015; 82272; 83605; 83690; 83735; 84484; 85014; 85018; 85025; 85610; 85730; 86850; 86900; 86901; 86927; 87086; 93005; 96360; 99213; 99285; A9270-GY; G0463; J2543; J3430; P9017; Q9967

== ENCOUNTER 2020-03-30 17:52 | Inpatient (IN) ==
[2020-03-30] MEDS: Heparin 5000 UNITS/ML 1 mL VIAL SUBCUT SCH (22:31)
[2020-03-31] MEDS: Heparin 5000 UNITS/ML 1 mL VIAL SUBCUT SCH ×3 (05:47→20:53)
[2020-03-31 06:20] LABS: ABS Basophils 0.1 10^3/ul (0-0.2); ABS Eosinophils 0.2 10^3/ul (0-0.6); ABS Lymphocytes 0.5 10^3/ul (1.0-4.8); ABS Monocytes 0.6 10^3/ul (0-0.8); ABS Neutrophils 8.1 10^3/ul (1.5-7.7); Eosinophil % 1.8 %; Hematocrit 24 % (35-47); Hemoglobin 8.6 g/dL (12.0-16.0); Lymphocyte % 5.4 %; Mean Corpuscular HGB Conc 36 g/dL (31-36); Mean Corpuscular Hemoglobin 32 pg (27-31); Mean Corpuscular Volume 88 fL (80-97); Mean Platelet Volume 8.8 fL (7.4-10.4); Nucleated Red Blood Cells % 0.1; Platelet Count 320 10^3/uL (150-450); Red Blood Count 2.69 10^6 /uL (3.70-4.87); Red Cell Distribution Width 15 % (10-15); White Blood Count 9.3 10^3/uL (3.5-10.8)
[2020-03-31 06:39] LABS: BUN/Creatinine Ratio 11.3 (8-20); EGFR African American 6.2 (>60); EGFR Non-African American 5.1 (>60); Potassium 3.6 mmol/L (3.5-5.0)
[2020-03-31] MEDS ORDERED: Albumin Human 25% 12.5 GM/50 ML BTL IV PRN (09:56)
[2020-03-31] MEDS ORDERED: Heparin 1,000 UNIT/ML 10 ml (10,000 UNITS) CATHLAB/DIALYSIS DIALYSIS ONE (10:00)
[2020-03-31 16:16] LABS: Hepatitis B Surface Antigen Nonreactive (Nonreactive)
[2020-03-31 16:33] LABS: Hepatitis B Surface Ab Not Immune (Immune)
[2020-03-31] MEDS: Furosemide 20 mg/2 ml IV VIAL IV SLOW PU SCH (20:55)
[2020-04-01] MEDS: Heparin 5000 UNITS/ML 1 mL VIAL SUBCUT SCH ×3 (05:35→23:00)
[2020-04-01 05:38] LABS: ABS Basophils 0.1 10^3/ul (0-0.2); ABS Eosinophils 0.1 10^3/ul (0-0.6); ABS Lymphocytes 0.7 10^3/ul (1.0-4.8); ABS Monocytes 0.8 10^3/ul (0-0.8); ABS Neutrophils 6.8 10^3/ul (1.5-7.7); Hematocrit 23 % (35-47); Hemoglobin 8.3 g/dL (12.0-16.0); Lymphocyte % 8.1 %; Mean Corpuscular HGB Conc 36 g/dL (31-36); Mean Corpuscular Hemoglobin 31 pg (27-31); Mean Corpuscular Volume 88 fL (80-97); Mean Platelet Volume 8.2 fL (7.4-10.4); Platelet Count 368 10^3/uL (150-450); Red Blood Count 2.67 10^6 /uL (3.70-4.87); Red Cell Distribution Width 15 % (10-15); White Blood Count 8.3 10^3/uL (3.5-10.8)
[2020-04-01 06:50] LABS: Calcium 8.2 mg/dL (8.6-10.3); Magnesium 1.9 mg/dL (1.9-2.7); Potassium 3.5 mmol/L (3.5-5.0)
[2020-04-01 06:56] LABS: BUN/Creatinine Ratio 8.7 (8-20); EGFR African American 10.1 (>60); EGFR Non-African American 8.4 (>60)
[2020-04-01] MEDS: Furosemide 20 mg/2 ml IV VIAL IV SLOW PU SCH ×2 (09:07→23:00)
[2020-04-02] MEDS: Heparin 5000 UNITS/ML 1 mL VIAL SUBCUT SCH ×3 (05:59→22:14)
[2020-04-02 06:41] LABS: ABS Eosinophils 0.1 10^3/ul (0-0.6); ABS Lymphocytes 0.5 10^3/ul (1.0-4.8); ABS Monocytes 0.7 10^3/ul (0-0.8); ABS Neutrophils 8.6 10^3/ul (1.5-7.7); Eosinophil % 1.1 %; Hematocrit 25 % (35-47); Hemoglobin 8.8 g/dL (12.0-16.0); Lymphocyte % 5.1 %; Mean Corpuscular HGB Conc 35 g/dL (31-36); Mean Corpuscular Hemoglobin 31 pg (27-31); Mean Corpuscular Volume 88 fL (80-97); Mean Platelet Volume 8.8 fL (7.4-10.4); Platelet Count 454 10^3/uL (150-450); Red Blood Count 2.82 10^6 /uL (3.70-4.87); Red Cell Distribution Width 16 % (10-15); White Blood Count 9.9 10^3/uL (3.5-10.8)
[2020-04-02 06:58] LABS: BUN/Creatinine Ratio 8.7 (8-20); Calcium 8.3 mg/dL (8.6-10.3); EGFR African American 8.7 (>60); EGFR Non-African American 7.2 (>60); Potassium 3.1 mmol/L (3.5-5.0)
[2020-04-02] MEDS: Furosemide 20 mg/2 ml IV VIAL IV SLOW PU SCH ×2 (08:10→22:11)
[2020-04-02 09:33] LABS: Magnesium 1.8 mg/dL (1.9-2.7)
[2020-04-02 09:39] LABS: Phosphorus 5.4 mg/dL (2.5-5.0)
[2020-04-02] MEDS ORDERED: Potassium Chlor 10 meq TAB PO ONE (09:51)
[2020-04-03] MEDS: Heparin 5000 UNITS/ML 1 mL VIAL SUBCUT SCH ×3 (05:42→20:37)
[2020-04-03 06:05] LABS: ABS Eosinophils 0.1 10^3/ul (0-0.6); ABS Lymphocytes 0.5 10^3/ul (1.0-4.8); ABS Monocytes 0.7 10^3/ul (0-0.8); ABS Neutrophils 8.3 10^3/ul (1.5-7.7); Eosinophil % 1.2 %; Hematocrit 25 % (35-47); Hemoglobin 8.7 g/dL (12.0-16.0); Mean Corpuscular HGB Conc 35 g/dL (31-36); Mean Corpuscular Hemoglobin 31 pg (27-31); Mean Corpuscular Volume 88 fL (80-97); Mean Platelet Volume 8.7 fL (7.4-10.4); Platelet Count 473 10^3/uL (150-450); Red Blood Count 2.83 10^6 /uL (3.70-4.87); Red Cell Distribution Width 15 % (10-15); White Blood Count 9.6 10^3/uL (3.5-10.8)
[2020-04-03 06:24] LABS: BUN/Creatinine Ratio 7.7 (8-20); Calcium 8.3 mg/dL (8.6-10.3); EGFR African American 8.1 (>60); EGFR Non-African American 6.7 (>60); Magnesium 1.7 mg/dL (1.9-2.7); Phosphorus 5.4 mg/dL (2.5-5.0); Potassium 2.9 mmol/L (3.5-5.0)
[2020-04-03] MEDS ORDERED: Potassium Chloride LIQUID 20 MEQ/15 ML LIQUID PO ONE (07:29)
[2020-04-03] MEDS ORDERED: Heparin 1,000 UNIT/ML 10 ml (10,000 UNITS) CATHLAB/DIALYSIS DIALYSIS ONE (08:00)
[2020-04-03] MEDS: Furosemide 20 mg/2 ml IV VIAL IV SLOW PU SCH (12:36)
[2020-04-04] MEDS: Heparin 5000 UNITS/ML 1 mL VIAL SUBCUT SCH ×3 (05:37→20:52)
[2020-04-04 06:06] LABS: Hematocrit 23 % (35-47); Hemoglobin 8.1 g/dL (12.0-16.0); Mean Corpuscular HGB Conc 36 g/dL (31-36); Mean Corpuscular Hemoglobin 31 pg (27-31); Mean Corpuscular Volume 88 fL (80-97); Mean Platelet Volume 8.9 fL (7.4-10.4); Platelet Count 448 10^3/uL (150-450); Red Blood Count 2.59 10^6 /uL (3.70-4.87); Red Cell Distribution Width 15 % (10-15); White Blood Count 7.1 10^3/uL (3.5-10.8)
[2020-04-04 06:12] LABS: BUN/Creatinine Ratio 7.5 (8-20); Calcium 7.6 mg/dL (8.6-10.3); EGFR African American 13.7 (>60); EGFR Non-African American 11.3 (>60); Magnesium 1.5 mg/dL (1.9-2.7); Phosphorus 4.1 mg/dL (2.5-5.0); Potassium 2.8 mmol/L (3.5-5.0)
[2020-04-04] MEDS ORDERED: Magnesium Sulf 4 GM/100 ML IV 4,000 MG/100 ML BAG IVPB ONE (08:17)
[2020-04-04 08:28] LABS: ABS Eosinophils 0.1 10^3/ul (0-0.6); ABS Lymphocytes 0.6 10^3/ul (1.0-4.8); ABS Monocytes 0.7 10^3/ul (0-0.8); ABS Neutrophils 5.7 10^3/ul (1.5-7.7); Eosinophil % 1.2 %; Lymphocyte % 8.3 %
[2020-04-04] MEDS: Potassium Chloride LIQUID 20 MEQ/15 ML LIQUID PO SCH ×4 (09:36→14:33)
[2020-04-04] MEDS ORDERED: CALCIUM GLUCONATE 1GM/50ML NS 1 GM/50 ML BAG IV ONE (10:36)
[2020-04-05] MEDS: Heparin 5000 UNITS/ML 1 mL VIAL SUBCUT SCH ×3 (05:20→20:53)
[2020-04-05 05:40] LABS: ABS Basophils 0.1 10^3/ul (0-0.2); ABS Eosinophils 0.1 10^3/ul (0-0.6); ABS Lymphocytes 0.4 10^3/ul (1.0-4.8); ABS Monocytes 0.7 10^3/ul (0-0.8); ABS Neutrophils 3.9 10^3/ul (1.5-7.7); Eosinophil % 1.3 %; Hematocrit 25 % (35-47); Hemoglobin 8.5 g/dL (12.0-16.0); Lymphocyte % 8.7 %; Mean Corpuscular HGB Conc 34 g/dL (31-36); Mean Corpuscular Hemoglobin 30 pg (27-31); Mean Corpuscular Volume 88 fL (80-97); Mean Platelet Volume 7.8 fL (7.4-10.4); Platelet Count 426 10^3/uL (150-450); Red Blood Count 2.79 10^6 /uL (3.70-4.87); Red Cell Distribution Width 15 % (10-15); White Blood Count 5.2 10^3/uL (3.5-10.8)
[2020-04-05 05:54] LABS: BUN/Creatinine Ratio 7.8 (8-20); Calcium 8.7 mg/dL (8.6-10.3); EGFR Non-African American 9.9 (>60); Magnesium 2.5 mg/dL (1.9-2.7); Phosphorus 4.1 mg/dL (2.5-5.0); Potassium 3.5 mmol/L (3.5-5.0)
[2020-04-06] MEDS: Heparin 5000 UNITS/ML 1 mL VIAL SUBCUT SCH ×3 (05:06→21:15)
[2020-04-06 05:32] LABS: Hematocrit 24 % (35-47); Hemoglobin 8.3 g/dL (12.0-16.0); Mean Corpuscular HGB Conc 35 g/dL (31-36); Mean Corpuscular Hemoglobin 31 pg (27-31); Mean Corpuscular Volume 88 fL (80-97); Mean Platelet Volume 8.2 fL (7.4-10.4); Platelet Count 360 10^3/uL (150-450); Red Cell Distribution Width 15 % (10-15); White Blood Count 4.9 10^3/uL (3.5-10.8)
[2020-04-06 05:47] LABS: Calcium 8.5 mg/dL (8.6-10.3); Magnesium 2.2 mg/dL (1.9-2.7); Potassium 3.4 mmol/L (3.5-5.0)
[2020-04-06 05:53] LABS: BUN/Creatinine Ratio 8.7 (8-20); EGFR African American 11.9 (>60); EGFR Non-African American 9.8 (>60)
[2020-04-07] MEDS: Heparin 5000 UNITS/ML 1 mL VIAL SUBCUT SCH ×2 (05:21→12:55)
[2020-04-07 06:23] LABS: BUN/Creatinine Ratio 9.4 (8-20); Calcium 8.5 mg/dL (8.6-10.3); EGFR African American 13.1 (>60); EGFR Non-African American 10.9 (>60); Magnesium 1.9 mg/dL (1.9-2.7); Phosphorus 4.9 mg/dL (2.5-5.0); Potassium 3.2 mmol/L (3.5-5.0)
[2020-04-07 06:25] LABS: Hematocrit 24 % (35-47); Hemoglobin 8.3 g/dL (12.0-16.0); Mean Corpuscular HGB Conc 35 g/dL (31-36); Mean Corpuscular Hemoglobin 31 pg (27-31); Mean Corpuscular Volume 89 fL (80-97); Platelet Count 313 10^3/uL (150-450); Red Cell Distribution Width 15 % (10-15); White Blood Count 4.2 10^3/uL (3.5-10.8)
[2020-04-07] MEDS ORDERED: Potassium Chloride LIQUID 20 MEQ/15 ML LIQUID PO ONE ×2 (07:34→09:00)
[2020-04-07 08:17] LABS: ABS Eosinophils 0.1 10^3/ul (0-0.6); ABS Lymphocytes 0.6 10^3/ul (1.0-4.8); ABS Monocytes 0.6 10^3/ul (0-0.8); ABS Neutrophils 2.8 10^3/ul (1.5-7.7); Eosinophil % 1.7 %; Lymphocyte % 14.2 %
[2020-04-07 11:23] VITALS: BP 106/58
== END 2020-04-07 13:45 | DRG 871 ==
LOC: MEDTELE 21:26
PROVIDERS: ADMIT Internal Medicine; ATTEND Internal Medicine